=== PATIENT | male | born 1965 | race Caucasian/White ===

== ENCOUNTER 2017-01-22 00:25 | Emergency (ER) | payer SELFPAY ==
[2017-01-22 01:13] VITALS: BP 121/74
--- NOTE | 2017-01-22 01:26 | EDM.PDOC ---
ED HPI GENERAL MEDICAL PROBLEM - General Chief Complaint: Skin Complaint Stated Complaint: POSSIBLE TICK BITE Time Seen by Provider: 01/22/17 01:16 - History of Present Illness INITIAL COMMENTS - FREE TEXT/NARRATIVE: 51-year-old male presents to the emergency room with a suspected insect bite. Patient noticed a skin lesion today on the inner aspect of his left proximal forearm. The patient has not had any fevers or chills no unusual rash and no other symptoms. He pulled some ticks off himself the other day he does not believe that they were firmly attached. And they were not in the area of the skin lesion. - Related Data Allergies Allergy/AdvReac Type Severity Reaction Status Date / Time No Known Allergies Allergy Verified 01/22/17 01:13 Home Meds: Home Meds Doxycycline Hyclate 100 mg PO Q12H #20 tablet 01/22/17 [Rx] ED ROS GENERAL - Review of Systems Review Of Systems: See Below Constitutional: Reports: No Symptoms HEENT: Reports: No Symptoms Respiratory: Reports: No Symptoms Cardiovascular: Reports: No Symptoms Endocrine: Reports: No Symptoms GI/Abdominal: Reports: No Symptoms Musculoskeletal: Reports: No Symptoms Skin: Reports: Other (Other than the suspected insect bite he has no rash or any other skin symptoms) Neurological: Reports: No Symptoms ED EXAM, SKIN/RASH Exam: See Below Exam Limited By: No Limitations General Appearance: Alert, No Apparent Distress Respiratory/Chest: No Respiratory Distress, Lungs Clear, Normal Breath Sounds Cardiovascular: Regular Rate, Rhythm, No Edema, No Murmur Extremities: Normal Inspection, Normal Range of Motion, Non-Tender, No Pedal Edema Skin: Other (On the inner aspect of his left forearm at the elbow the patient has a slightly raised irregularly shaped erythematous lesion with a crusty central area this area is roughly 1 cm semicircular. He has mild surrounding erythema.) Course - Vital Signs Last Recorded V/S: Last Vital Signs Temp 36.4 C 01/22/17 01:09 Pulse 65 01/22/17 01:09 Resp 16 01/22/17 01:09 BP 121/74 01/22/17 01:09 Pulse Ox 98 01/22/17 01:09 - Orders/Labs/Meds Meds: Medications Discontinued Medications Generic Name Dose Route Start Last Admin Trade Name Freq PRN Reason Stop Dose Admin Doxycycline Hyclate 100 mg 01/22/17 02:01 Vibramycin PO 01/22/17 02:02 ONETIME ONE - Re-Assessments/Exams Free Text/Narrative Re-Assessment/Exam: 01/22/17 02:12 The cause of this skin lesion is not quite clear he can easily be a spider bite or perhaps a secondarily infected tick bite the patient was concerned about possibly Lyme's disease is extremely rare in this area more likely is tularemia or [place] spotted fever these are both very rare as well. Departure - Departure Time of Disposition: 01:49 Disposition: Home, Self-Care 01 Clinical Impression: Insect bite - Discharge Information Prescriptions: Doxycycline Hyclate 100 mg PO Q12H #20 tablet Instructions: Insect Bite, [id number] Referrals: PCP,None [Primary Care Provider] - Forms: ED Department Discharge Additional Instructions: Return to the emergency room with any questions problems or worsening symptoms. You been started on doxycycline this is an antibiotic take 1 twice daily until all gone. You have been given a handwritten prescription for 20 doxycycline. Use caution while taking this medication as it can lead to a severe sunburn keep your arms and exposed skin covered while outside. Follow-up in the Hospital clinic on Tuesday or for recheck. [phone]
[2017-01-22] MEDS ORDERED: Doxycycline 100 MG Cap PO ONE (02:01)
== END 2017-01-22 02:43 | disposition home or self-care (01) ==
LOC: JD.ED 00:25
DX: S50.362A Insect bite (nonvenomous) of left elbow, initial encounter (principal); W57.XXXA Bitten or stung by nonvenomous insect and other nonvenomous arthropods, initial encounter
CPT/HCPCS: 99282; A9270; 99283